=== PATIENT | male | born 1970 | race Caucasian/White ===

== ENCOUNTER 2018-11-08 12:23 | Day surgery (SDC) | payer SELFPAY ==
[2018-11-08 12:55] VITALS: BP 154/88; PULSE 79; RESP 16; TEMP 36.9; O2SAT 98; BMI 33.9
[2018-11-08] MEDS: Cefazolin 2 GM in 0.9% Normal Saline 100 ML IV (13:37)
--- NOTE | 2018-11-08 13:57 | DCINST_ITS ---
Discharge Diet: Light diet - advance as tolerated Discharge Activity: Return to Normal Activity Call your doctor if your incision/area has: Sudden Increased Bleeding Call your doctor if you observe: Fever of 101 or Higher Suture Line Care: Avoid Pulling/Pushing, Avoid Pinching/Bending Allergies/Adverse Reactions: Allergies No Known Allergies Allergy (Verified 11/08/18 12:39) Medications to take at Discharge Lisinopril/Hydrochlorothiazide [Lisinopril-Hctz 20-25 mg Tab] 1 ea PO DAILY 11/07/18 Ciprofloxacin [Cipro] 500 mg PO BID #6 tab 11/08/18 Hydrocodone/Acetaminophen [[place] 5-325 Tablet] 1 ea PO Q4H PRN PRN 5 Days #20 tab 11/08/18 The following prescriptions were given: Ciprofloxacin [Cipro] 500 mg PO BID #6 tab Prescription Printed Hydrocodone/Acetaminophen [[place] 5-325 Tablet] 1 ea PO Q4H PRN PRN 5 Days #20 tab PRN Reason: Pain Prescription Printed Primary Care Physician: Phillip Martell MD [Primary Care Provider] - Test Results: Test results from this visit will be discussed in further detail at your follow- up appointment, if applicable. Please Follow Up With: Dino Carney MD When: please call to make an appointment.
--- NOTE | 2018-11-08 14:39 | OP.PCM_ITS ---
Report of Operation Date of Procedure: 11/08/18 Pre-Operative Diagnosis: Right UPJ stone 13 mm Post-Operative Diagnosis: The same Surgery/Procedure Performed:: Cystoscopy right stent placement, right extracorporeal shockwave lithotripsy Description of Surgical Findings:: 47-year-old male who presented to the office with obstructing stone about 13 mm in size in the proximal right UPJ area we will plan to proceed with treatment of the stone today and placement of a stent. 47-year-old male taken back to the operating room and smooth induction of general anesthesia he was placed supine on the table then in dorsolithotomy position, the penis and testicles were prepped and draped in usual sterile fashion, I used a 21 [place] rigid cystourethroscope and went through the urethra the entire length the urethra was normal sphincter was a normal the prostate is normal trigone is normal identify the bladder no tumors or stones seen within the bladder I then cannulated the right ureteral orifice with a wire advanced the wire up into the kidney I then pushed a stent stent went up into the right kidney as I was pulling the wire the string of the stent broke and the came off the stent and then a string stent coiled in the kidney and bladder decided to leave the stent as it is want to do the extraction later I then drained the bladder we repositioned the patient on the F2 focal machine the lithotripter and under fluoroscopy we identified the stone in the proceed with shockwave lithotripsy, at a rate of 90/s, with a power of the 7 kV we applied 3000 shockwaves to the stone and the stone did fracture very nicely at the end of the procedure appeared to be a complete fragmentation. The stent was left in place. Patient anesthetic was reversed she is extubated taken back to PACU good condition plan to see him next week for cystoscopy and stent removal Type of Anesthesia:: General Drains: stent right - Admit VTE Documentation VTE Present on Admission: No VTE Mechan Device Prophylaxis: SCD's
[2018-11-08 14:45] VITALS: BP 134/89; BP 154/88; PULSE 72; RESP 17; TEMP 36.4; O2SAT 97
[2018-11-08 15:00] VITALS: BP 134/82; BP 154/88; PULSE 72; RESP 16; O2SAT 93
[2018-11-08 15:15] VITALS: BP 145/84; BP 154/88; PULSE 69; RESP 16; O2SAT 95
[2018-11-08 15:30] VITALS: BP 143/93; BP 154/88; PULSE 70; RESP 16; TEMP 36.4; O2SAT 94
[2018-11-08 16:42] VITALS: BP 154/88; BP 155/96; PULSE 74; RESP 16; TEMP 36.2; O2SAT 97
== END 2018-11-08 16:43 | disposition home or self-care (01) ==
LOC: SDC 12:35 → AC 12:36
PROVIDERS: Family Provider Orthopaedic Surgery; PCP Orthopaedic Surgery; Referring Provider Urology; Visit Provider Urology
PROC: (CPT 50590; principal; 2018-11-08 13:50)
DX: N20.1 Calculus of ureter (principal); I10 Essential (primary) hypertension
CPT/HCPCS: 00873; 50590; 52332; J7120; C1769; J2405